=== PATIENT | female | born 1985 | race Hispanic/Latino ===

== ENCOUNTER 2019-11-25 04:13 | Inpatient (IN) | payer OTHER ==
[~2019-11-25] VITALS: Ht 157.5 cm; Wt 82.0 kg
--- NOTE | 2019-11-25 05:35 | PR ---
[facility] [address] [facility] [place], [place] [address] Signed Progress Notes IP Datetime Report Generated by CPN: 11/25/2019 05:34 PROGRESS NOTES: [id number] Impression: Normal progression of labor Procedures: Artificial ROM Plan: Anticipate Vaginal Delivery VITAL SIGNS: [id number] Vital Signs: Reviewed; Within Normal Limits EXAM: [id number] Dilatation: 5.0 Effacement: 75 Station: -2 Uterine Contractions: every 2-4 minutes MEMBRANES: [id number] Membrane Status: Ruptured Amniotic Fluid Color: Meconium, Light ROM Note: AROM without difficulty, small amount light meconium fluid returned Comments: Tolerating contracitons well Fetus A: [id number] FHR Baseline: 125 Variability: Moderate 6-25bpm Accelerations: 15X15 Presentation: Vertex Fetus B: [id number] Signing Physician: Lucy Samuels MD Copies: ~ *Electronically Signed* 11/25/19 0534 LUCY SAMUELS MD PATIENT NAME: KAYA SERNA PROGRESS NOTE DATE OF : 81 PHYSICIAN: LUCY SAMUELS MD RPT #: [id number] REPORT IS CONFIDENTIAL AND NOT TO BE RELEASED WITHOUT AUTHORIZATION
--- NOTE | 2019-11-25 12:15 | PR ---
[facility] [address] [place], [place] [address] Signed Progress Notes IP Datetime Report Generated by CPN: 11/25/2019 12:15 PROGRESS NOTES: [id number] Impression: Slow Progression of Labor Procedures: Artificial ROM Plan: Anticipate Vaginal Delivery VITAL SIGNS: [id number] Vital Signs: Reviewed; Within Normal Limits EXAM: [id number] Dilatation: 6.0 Effacement: 50 Station: -2 Uterine Contractions: every 2-5 minutes MEMBRANES: [id number] Membrane Status: Ruptured Amniotic Fluid Color: Meconium, Light ROM Note: AROM without difficulty, small amount light meconium fluid returned Comments: Will try "Hands-Knees" position to try to get fetus to rotate and see if this will help dialtion. Explained plan to patient; if not will need internal monitors and increase Pitocin Fetus A: [id number] FHR Baseline: 145 Variability: Moderate 6-25bpm Accelerations: 15X15 Presentation: Vertex Fetus B: [id number] Signing Physician: Lucy Samuels MD Copies: ~ *Electronically Signed* 11/25/19 1215 LUCY SAMUELS MD PATIENT NAME: KAYA SERNA PROGRESS NOTE DATE OF : 81 PHYSICIAN: LUCY SAMUELS MD RPT #: [id number] REPORT IS CONFIDENTIAL AND NOT TO BE RELEASED WITHOUT AUTHORIZATION
--- NOTE | 2019-11-25 12:18 | PR ---
[facility] [address] [facility] [place], [place] [address] Signed Progress Notes IP Datetime Report Generated by CPN: 11/25/2019 12:18 PROGRESS NOTES: [id number] Impression: Slow Progression of Labor Procedures: Artificial ROM Plan: Augmentation; Anticipate Vaginal Delivery VITAL SIGNS: [id number] Vital Signs: Reviewed; Within Normal Limits EXAM: [id number] Dilatation: 6.0 Effacement: 50 Station: -3 Uterine Contractions: contractions spacing out MEMBRANES: [id number] Membrane Status: Ruptured Amniotic Fluid Color: Meconium, Light ROM Note: AROM without difficulty, small amount light meconium fluid returned Comments: Tried having patient up and walking, Will start Pitocin augmentation Fetus A: [id number] FHR Baseline: 145 Variability: Moderate 6-25bpm Accelerations: 15X15 Presentation: Vertex Fetus B: [id number] Signing Physician: Lucy Samuels MD Copies: ~ *Electronically Signed* 11/25/19 1218 LUCY SAMUELS MD PATIENT NAME: KAYA SERNA PROGRESS NOTE DATE OF : 81 PHYSICIAN: LUCY SAMUELS MD RPT #: [id number] REPORT IS CONFIDENTIAL AND NOT TO BE RELEASED WITHOUT AUTHORIZATION
--- NOTE | 2019-11-25 13:29 | PR ---
[facility] [address] [facility] [place], [place] [address] Signed Progress Notes IP Datetime Report Generated by CPN: 11/25/2019 13:29 PROGRESS NOTES: [id number] Impression: Slow Progression of Labor Procedures: Intrauterine Pressure Catheter Plan: Continue present management VITAL SIGNS: [id number] Vital Signs: Reviewed; Within Normal Limits EXAM: [id number] Dilatation: 6.0 Effacement: 75 Station: -2 Uterine Contractions: every 4-5 minutes MEMBRANES: [id number] Membrane Status: Ruptured Amniotic Fluid Color: Meconium, Light ROM Note: AROM without difficulty, small amount light meconium fluid returned Comments: Still no change in dilation, but feels little thinner, and not as posterior, easier to reach. IUPC inserted; contracitons do not look strong enough - will continue to increase Pitocin to try to gert adequate contraciton pattern, try on extreme side. Discussed plan with patient Fetus A: [id number] FHR Baseline: 140 Variability: Moderate 6-25bpm Accelerations: 15X15 Presentation: Vertex Fetus B: [id number] Signing Physician: Lucy Samuels MD Copies: ~ *Electronically Signed* 11/25/19 1325 LUCY SAMUELS MD PATIENT NAME: KYAA SERNA PROGRESS NOTE DATE OF : 81 PHYSICIAN: LUCY SAMUELS MD RPT #: [id number] REPORT IS CONFIDENTIAL AND NOT TO BE RELEASED WITHOUT AUTHORIZATION
--- NOTE | 2019-11-25 16:35 | PR ---
[facility] [address] [facility] [place] [address] Signed Progress Notes IP Datetime Report Generated by CPN: 11/25/2019 16:35 PROGRESS NOTES: [id number] Impression: Slow Progression of Labor Procedures: Scalp Electrode Plan: Continue present management VITAL SIGNS: [id number] Vital Signs: Reviewed; Within Normal Limits EXAM: [id number] Dilatation: 10.0 Effacement: 75 Station: 1 Uterine Contractions: every 4-5 minutes MEMBRANES: [id number] Membrane Status: Ruptured Amniotic Fluid Color: Meconium, Light ROM Note: AROM without difficulty, small amount light meconium fluid returned Comments: Late decels but good variability; FEKG applied; will watch closelly Fetus A: [id number] FHR Baseline: 135 Variability: Moderate 6-25bpm Accelerations: 15X15 Decelerations: Late; Variable (Annotations: Data stored by [facility] on behalf of user) Presentation: Vertex Fetus B: [id number] Signing Physician: Lucy Samuels MD Copies: ~ *Electronically Signed* 11/25/19 1635 LUCY SAMUELS MD PATIENT NAME: KAYA SERNA PROGRESS NOTE DATE OF : 81 PHYSICIAN: LUCY SAMUELS MD RPT #: [id number] REPORT IS CONFIDENTIAL AND NOT TO BE RELEASED WITHOUT AUTHORIZATION
--- NOTE | 2019-11-25 16:37 | PR ---
[facility] [address] [facility] [place], [place] [address] Signed Progress Notes IP Datetime Report Generated by CPN: 11/25/2019 16:37 PROGRESS NOTES: [id number] Impression: Normal progression of labor Procedures: Scalp Electrode Plan: Continue present management VITAL SIGNS: [id number] Vital Signs: Reviewed; Within Normal Limits EXAM: [id number] Dilatation: 10.0 Effacement: 75 Station: 1 Uterine Contractions: every 4-5 minutes MEMBRANES: [id number] Membrane Status: Ruptured Amniotic Fluid Color: Meconium, Light ROM Note: AROM without difficulty, small amount light meconium fluid returned Comments: Pitocin off; will try "Hands-Knees" again. Watch closely Fetus A: [id number] FHR Baseline: 125 Variability: Moderate 6-25bpm Accelerations: 15X15 Decelerations: Late Presentation: Vertex Fetus B: [id number] Signing Physician: Lucy Samuels MD Copies: ~ *Electronically Signed* 11/25/19 1637 LUCY SAMUELS MD PATIENT NAME: KAYA SERNA PROGRESS NOTE DATE OF : 81 PHYSICIAN: LUCY SAMUELS MD RPT #: [id number] REPORT IS CONFIDENTIAL AND NOT TO BE RELEASED WITHOUT AUTHORIZATION
--- NOTE | 2019-11-26 07:54 | PR ---
[facility] [address] [facility] [place], [place] [address] Signed PP Progress Notes Datetime Report Generated by CPN: 11/26/2019 07:54 SUBJECTIVE: [id number] Pain: Within normal limits Nausea/Vomiting: Denies Flatus: Yes Bowel Movement: No Vital Signs: [id number] Vital Signs: Reviewed EXAM: [id number] Cardiovascular: Normal Respiratory: Normal Abdomen/Uterus: Normal Lochia: Normal Vulva/Perineum: Not Done Breasts: Not Done CVA Tenderness: Normal Extremities: Normal Incision: Not Applicable Progress: Normal Exam Comments: Fundus firm U-2 nontender IMPRESSION/PLAN/PROCEDURES: [id number] Impression: Normal progression Plan: Discharge Progress Notes: Pt seen and examined. Doing well. Ambulating, voiding, and tolerating full diet. Pain and lochia minimal. well. Desires d/c home today. No questions or concerns. Signing Physician: Melody Stark DO Copies: ~ *Electronically Signed* 11/26/19 0754 MELODY STARK DO PATIENT NAME: KAYA SERNA PROGRESS NOTE DATE OF : 81 PHYSICIAN: MELODY STARK DO RPT #: [id number] REPORT IS CONFIDENTIAL AND NOT TO BE RELEASED WITHOUT AUTHORIZATION
== END 2019-11-26 17:10 | disposition home or self-care (01) | DRG 807 ==
LOC: FBCO 04:13 → FBC 04:35
PROVIDERS: ADMIT General Practice
PROC: 10E0XZZ Delivery of Products of Conception, External Approach (ICD-10-PCS; principal; 2019-11-25)
PROC: 0HQ9XZZ Repair Perineum Skin, External Approach (ICD-10-PCS; 2019-11-25)
PROC: 10907ZC Drainage of Amniotic Fluid, Therapeutic from Products of Conception, Via Natural or Artificial Opening (ICD-10-PCS; 2019-11-25)
PROC: 10H07YZ Insertion of Other Device into Products of Conception, Via Natural or Artificial Opening (ICD-10-PCS; 2019-11-25)
DX: O77.0 Labor and delivery complicated by meconium in amniotic fluid (principal); Z37.0 Single live birth; O70.0 First degree perineal laceration during delivery; Z3A.38 38 weeks gestation of pregnancy; O76 Abnormality in fetal heart rate and rhythm complicating labor and delivery
CPT/HCPCS: 36415; 85027; A9270; J2590; J7121